=== PATIENT | female | born 2000 | race Caucasian/White ===

== ENCOUNTER → 2021-12-16 | Day surgery (SDC) | payer BC, OTHER ==
[~2021-12-16] MED LIST: BACTRIM DS TAB1 EACH PO; IBUPROFEN800 MG PO; PERCOCET 5/325 T1 EA PO
[2021-12-16 11:28] LABS: HEMOGLOBIN 12.9 gm/dl (12.3-15.3); RED BLOOD COUNT 4.26 M/UL (4.00-5.10); WHITE BLOOD COUNT 6.4 K/UL (4.5-11.0)
== END | disposition home or self-care (01) ==
LOC: OR 11:03
PROVIDERS: Obstetrics & Gynecology
DX: O02.1 Missed abortion (principal); Z79.899 Other long term (current) drug therapy
CPT/HCPCS: 81001; 85025; J1885; J2001; J2210; J2250; J2704; J3010; J7030; J7120